=== PATIENT | female | born 1965 | race Caucasian/White ===

== ENCOUNTER 2016-11-26 13:56 | Emergency (ER) | payer OTHER ==
--- NOTE | 2016-11-26 14:10 | CPEKG ---
Heart Rate: 66 RR Interval: 909 P-R Interval: 140 QRSD Interval: 80 QT Interval: 388 QTC Interval: 407 P [place]: 23 QRS [place]: 80 T Wave [place]: 65 EKG Severity - NORMAL ECG - EKG Impression: SINUS RHYTHM Electronically Signed By: Anthony Hunt 01-Dec-2016 12:21:45
[2016-11-26 14:29] LABS: % IMMATURE GRANULYOCYTES 0.1 % (0.0-1.1); ABSOLUTE IMMATURE GRANULOCYTES 0.01 10^3/uL (0.00-0.10); ADD DIFF? NO; ADD MORPH? NO; ADD SCAN? NO; ATYPICAL LYMPHOCYTE FLAG 10 (0-99); FRAGMENT RBC FLAG 0 (0-99); HEMATOCRIT 42.2 % (38.0-47.0); HEMOGLOBIN 14.7 g/dL (12.6-16.3); LEFT SHIFT FLG 0 (0-99); LIPEMIA HEMOLYSIS FLAG 90 (0-99); MEAN CELL HEMOGLOBIN 28.7 pg (27.9-34.1); MEAN CELL HEMOGLOBIN CONCENTR. 34.8 g/dL (32.4-36.7); MEAN CELL VOLUME 82.3 fL (81.5-99.8); MEAN PLATELET VOLUME 9.9 fL (8.7-11.7); PLATELET CLUMPS FLAG 0 (0-99); PLATELET COUNT 305 10^3/uL (150-400); RED BLOOD CELL COUNT 5.13 10^6/uL (4.18-5.33); RED CELL DISTRIBUTION WIDTH 13.7 % (11.5-15.2)
[2016-11-26] MEDS ORDERED: ASPIRIN 81 MG CHEWABLE TAB PO ONE (14:29)
[2016-11-26 14:43] LABS: ANION GAP 15 mEq/L (8-16); CALCIUM 9.1 mg/dL (8.5-10.4); CARBON DIOXIDE 23 mEq/l (22-31); CHLORIDE 105 mEq/L (97-110); CREATININE 0.7 mg/dL (0.6-1.0); GLOMERULAR FILTRATION RATE > 60; GLUCOSE 82 mg/dL (70-100); POTASSIUM 4.1 mEq/L (3.5-5.2); SODIUM 143 mEq/L (134-144)
--- NOTE | 2016-11-26 14:44 | EDPHY ---
H & P Stated Complaint: chest discomfort and not feeling like herself Time Seen by Provider: 11/26/16 14:07 HPI/ROS: CHIEF COMPLAINT: Odd feeling in the chest HISTORY OF PRESENT ILLNESS: This is a 51-year-old female who presents reporting that this morning when she woke up she began to notice a pulsing sensation under her breast bone. This was associated with very mild pressure, almost like a mild pinching sensation. The sensation is present only for a moment. It is not associated with shortness of breath. It is not associated with dizziness, lightheadedness, pleuritic pain, nausea, or vomiting. She also has noted a pinching sensation in her left ear which developed this afternoon on arrival to the emergency department. Otherwise the area pain has not radiated. She tells me that the sensation is coming and going. It does not seem to be exacerbated by breathing, exertion, or rest. It is not been relieved by anything in particular. Patient is otherwise been well with no reports of fever, cold symptoms, shortness of breath, cough, sputum production. She has had no recent nausea vomiting or urinary complaints. She does tell me that she has been quite concerned regarding a recent diagnosis of Fernando's thyroiditis. She was in [facility] 3 weeks ago for a Health retreat. No history of diabetes, or hypertension. Questionable history of elevated cholesterol but the patient does not take any medications for this. Patient's mother had a myocardial infarction in her 60s. Her mother was a heavy smoker. Father had a stent placed in his 80s. Patient is unclear of her half siblings health status. REVIEW OF SYSTEMS: Aside from elements discussed in the HPI, a comprehensive 10-point review of systems was reviewed and is negative. PAST MEDICAL HISTORY: Fernando's thyroiditis. SOCIAL HISTORY: Nonsmoker. VITAL SIGNS: see nurse's notes. GENERAL: Well-developed, well-nourished, mildly anxious. Patient rates the discomfort as 2 /10. HEENT: Atraumatic. Eyes: No injection or icterus. Tympanic membranes are clear bilaterally. Oropharynx: No erythema, no injection, no swelling. Neck: No JVD, no bruits, supple with no adenopathy. LUNGS: Clear to auscultation bilaterally, no wheezes, rhonchi or rales. CARDIAC: Regular rate and rhythm, no murmurs, no rubs, no gallops. CHEST: No crepitus or chest wall pain. ABDOMEN: Soft, nontender, nondistended, bowel sounds normal. BACK: No CVA tenderness. EXTREMITIES: No trauma. No clubbing, cyanosis or edema. Range of motion is normal throughout. NEURO: Alert and oriented , grossly nonfocal. SKIN: No diaphoresis, warm and dry, no rash. - Personal History Current Tetanus/Diphtheria Vaccine: Yes Current Tetanus Diphtheria and Acellular Pertussis (TDAP): Yes - Medical/Surgical History Hx Asthma: No Hx Chronic Respiratory Disease: No Hx Diabetes: No Hx Cardiac Disease: No Hx Renal Disease: No Hx Cirrhosis: No Hx Alcoholism: No Hx HIV/AIDS: No Hx Splenectomy or Spleen Trauma: No Other PMH: hypothyroid - Social History Smoking Status: Never smoked Constitutional: Initial Vital Signs Temperature (C) 36.7 C 11/26/16 14:13 Heart Rate 67 11/26/16 14:13 Respiratory Rate 16 11/26/16 14:13 Blood Pressure 131/86 H 11/26/16 14:13 O2 Sat (%) 97 11/26/16 14:13 O2 Delivery Mode Room Air Allergies/Adverse Reactions: No Known Allergies Allergy (Unverified 11/26/16 14:16) Home Medications: Medication Instructions Recorded Synthroid 11/26/16 Medical Decision Making - Diagnostics EKG Interpretation: 12-LEAD EKG: Please see the full report in [facility]. My interpretation: Normal sinus rhythm, no ischemic changes. Imaging: I viewed and interpreted images myself ED Course/Re-evaluation: 51-year-old female with a mild, vague, pulsing sensation under her left breast. This sensation has been present throughout the morning. Evaluation the emergency department demonstrates an EKG with normal sinus rhythm. Patient has a negative troponin. I held a long discussion with the patient concerning her reassuring evaluation. We discussed limitations of the emergency department evaluation including that coronary artery disease has not been fully ruled out. Stress testing would be a reasonable next step in evaluation. Patient was offered admission to the hospital which she declined. Patient was offered to stay in the emergency department for serial troponins which she also declined. She would prefer to follow up as an outpatient. Her course was discussed with Dr. Self while, on-call for Cardiology. His office will contact the patient to set up an evaluation on Monday and this at stress testing. Patient understands reasons to return to the emergency department including worsening chest discomfort, lightheadedness, dizziness, fainting, palpitations, and shortness of breath. Differential Diagnosis: After history and physical examination, the differential for chest pain was considered, including but not limited to, myocardial ischemia, acute coronary syndrome, pulmonary embolus, chest wall pain, pleural inflammation and pulmonary infectious causes. - Data Points Laboratory Results: Laboratory Results 11/26/16 14:20 11/26/16 14:20 Medications Given: Discontinued Medications Aspirin (Aspirin) 324 mg PO EDNOW ONE Stop: 11/26/16 14:30 Last Admin: 11/26/16 14:40 Dose: 324 mg Departure - Departure Disposition: Home, Routine, Self-Care Clinical Impression: Atypical chest pain Condition: Good Instructions: Chest Pain (ED), Noncardiac Chest Pain (ED) Additional Instructions: You will be contacted by Dr. Aramis Shaffer's office on Monday. He has contact information is below. At that time they can do a consultation and perform a stress test. If you develop worsening discomfort, or chest pain associated with lightheadedness or dizziness, chest pain associated with nausea, vomiting, sweating, or other concerns, return to the emergency department immediately. The cause of your chest discomfort has not clearly been identified. Referrals: Patient,NotPresent [Primary Care Provider] - As per Instructions Edmond Shaffer MD [Medical Doctor] - As per Instructions
[2016-11-26 14:55] LABS: TROPONIN I < 0.012 ng/mL (0-0.034)
[2016-11-26 15:08] VITALS: RESP 20; TEMP 98.2
[2016-11-26 16:09] VITALS: BP 110/74; PULSE 71; O2SAT 95
== END 2016-11-26 16:11 | disposition home or self-care (01) ==
LOC: CED 13:56
DX: R07.89 Other chest pain (principal)
CPT/HCPCS: 71020-PO; 80048-PO; 83690-PO; 84484-PO; 85025-PO; 85378-PO

== ENCOUNTER → 2018-05-01 | Outpatient (CLI) | payer OTHER | LOC: BRMIMAGING 14:17 | PROVIDERS: ATTEND Family Medicine | DX: Z12.31 Encounter for screening mammogram for malignant neoplasm of breast (principal) ==